=== PATIENT | female | born 2000 | race Caucasian/White ===

== ENCOUNTER 2019-04-22 13:18 | Emergency (ER) | payer OTHER ==
[~2019-04-22] VITALS: Ht 165.1 cm; Wt 88.3 kg
[2019-04-22 13:19] VITALS: BP 140/67
[2019-04-22] MEDS ORDERED: birth control PO (13:24)
[2019-04-22] MEDS ORDERED: KETOROLAC 30 MG/ML VIAL (J1885) IM ONE (14:30)
[2019-04-22] MEDS ORDERED: IBUP-1022 PO (14:32)
[2019-04-22] MEDS ORDERED: AMOX500C PO (14:33)
== END 2019-04-22 14:43 | disposition home or self-care (01) ==
LOC: M ED 13:18
DX: S02.5XXA Fracture of tooth (traumatic), initial encounter for closed fracture (principal); X58.XXXA Exposure to other specified factors, initial encounter

== ENCOUNTER → 2019-06-10 | Outpatient (REF) | payer OTHER ==
[~2019-06-10] MED LIST: AMOX500C PO; IBUP-1022 PO; birth control PO
[2019-06-11 10:25] LABS: HEPATITIS A ANTIBODY IGM NEGATIVE (NEGATIVE); HEPATITIS B CORE ANTIBODY IGM NEGATIVE (NEGATIVE); HEPATITIS B SURFACE ANTIGEN NEGATIVE (NEGATIVE); HEPATITIS C VIRUS ABY INDEX 0.1 INDEX (<0.8)
== END ==
LOC: M LAB REF 12:23
PROVIDERS: ATTEND Nurse Practitioner Adult Health
DX: L81.8 Other specified disorders of pigmentation (principal)

== ENCOUNTER 2019-07-25 15:08 | Emergency (ER) | payer OTHER ==
[~2019-07-25] VITALS: Ht 165.1 cm; Wt 90.9 kg
[2019-07-25] MEDS ORDERED: FLUO10CA15 (15:23)
[2019-07-25] MEDS ORDERED: SPRI28TA (15:23)
[2019-07-25] MEDS ORDERED: KETOROLAC 30 MG/ML VIAL (J1885) IM ONE (16:45)
[2019-07-25] MEDS ORDERED: BENZOCAINE 20% GEL 9GM TUBE (ANBESOL MAX STRENGTH) TOP ONE (16:45)
[2019-07-25] MEDS ORDERED: AUGM875T28 PO (17:24)
[2019-07-25 17:39] VITALS: BP 128/82
== END 2019-07-25 17:41 | disposition home or self-care (01) ==
LOC: M ED 15:08
DX: K02.9 Dental caries, unspecified (principal); K08.89 Other specified disorders of teeth and supporting structures; S02.5XXA Fracture of tooth (traumatic), initial encounter for closed fracture; X58.XXXA Exposure to other specified factors, initial encounter; F33.9 Major depressive disorder, recurrent, unspecified; F41.9 Anxiety disorder, unspecified; Z79.3 Long term (current) use of hormonal contraceptives; Z79.899 Other long term (current) drug therapy
CPT/HCPCS: 84702; 96372; 99283; J1885

== ENCOUNTER 2019-10-07 09:50 | Emergency (ER) | payer OTHER ==
[~2019-10-07] VITALS: Ht 165.1 cm; Wt 95.7 kg
[2019-10-07 09:50] VITALS: BP 135/69
[~2019-10-07 09:50] MED LIST changes: +AUGM875T28 PO; +FLUO10CA15; +SPRI28TA
== END 2019-10-07 10:22 | disposition home or self-care (01) ==
LOC: M ED 09:50
DX: H61.21 Impacted cerumen, right ear (principal); F41.9 Anxiety disorder, unspecified; F33.9 Major depressive disorder, recurrent, unspecified